=== PATIENT | male | born 1950 | race Caucasian/White ===

== ENCOUNTER 2020-02-08 05:11 | Inpatient (IN) ==
[2020-02-08] MEDS ORDERED: Nitroglycerin 0.4 MG TAB.SUBL SL PRN (05:24)
[2020-02-08] MEDS ORDERED: Aspirin 81 MG TAB.CHEW PO ONE (05:24)
[2020-02-08] MEDS ORDERED: Aspirin 81 MG TAB.CHEW ONE (05:30)
[2020-02-08] MEDS ORDERED: Nitroglycerin 0.4 MG TAB.SUBL SL ONE (05:30)
[2020-02-08 05:49] LABS: Basophils % 0.6 %; Eosinophils # 0.3 K/mcL (0.0-0.6); Eosinophils % 4.2 %; Hematocrit 46.1 % (37.5-50.1); Hemoglobin 15.1 g/dL (12.9-16.9); Immature Granulocytes % 0.3 % (0-4); Lymphocytes # 1.4 K/mcL (0.6-4.6); Mean Corpuscular HGB Conc 32.8 g/dL (31.6-35.5); Mean Corpuscular Hemoglobin 28.3 pg (28.0-33.3); Mean Corpuscular Volume 86.5 fL (83.0-100.0); Mean Platelet Volume 8.8 fL (9.4-12.4); Monocytes # 0.5 K/mcL (0.0-1.3); Monocytes % 6.6 %; Platelet Count 173 K/mcL (140-400); Red Blood Count 5.33 M/mcL (4.19-5.50); Red Cell Distribution Width 15.2 % (11.5-14.5); Segmented Neutrophils % 69.3 %; White Blood Count 7.2 K/mcL (4.3-11.1)
[2020-02-08] MEDS ORDERED: *HR* Ticagrelor 90 MG TABLET PO ONE (05:49)
[2020-02-08 05:50] LABS: INR 1.1; Prothrombin Time 12.2 Seconds (9.4-12.1)
[2020-02-08] MEDS ORDERED: *HR* Heparin 5,000 UNIT/ML VIAL IVP ONE (05:50)
[2020-02-08 05:53] LABS: Activated Partial Thrombo Time 27.4 Seconds (26.0-36.0)
[2020-02-08] MEDS ORDERED: 0.9 % Sodium Chloride 1,000 ML IVC SCH ×4 (06:00→13:36)
[2020-02-08 06:03] LABS: BUN/Creatinine Ratio 18 (6-26); Blood Urea Nitrogen 18 mg/dL (8-23); Calcium 9.1 mg/dL (8.6-10.3); Carbon Dioxide 25 mEq/L (23-29); Chloride 108 mEq/L (98-107); Glucose 143 mg/dL (70-105); Osmolality,Calculated 296 (280-300); Potassium 3.6 mEq/L (3.5-5.1); Sodium 141 mEq/L (136-145); Troponin I < 0.03 ng/mL (< 0.04); eGFR For African Americans > 60 (> 60); eGFR For Non-African Americans > 60 (> 60)
[2020-02-08] MEDS ORDERED: *HR* FentaNYL (PF) 100 MCG/2 ML VIAL ONE (06:21)
[2020-02-08] MEDS ORDERED: Heparin 1,000 UNITS/500 mL 500 ML ONE (06:21)
[2020-02-08] MEDS ORDERED: *HR* Heparin 10,000 UNIT/10 ML VIAL ONE (06:21)
[2020-02-08] MEDS ORDERED: 0.9 % Sodium Chloride 1,000 ML ONE (06:21)
[2020-02-08] MEDS ORDERED: *HR* Midazolam HCl 2 MG/2 ML VIAL ONE (06:21)
[2020-02-08] MEDS ORDERED: ISOVUE-370 200 ML INFUS..BTL ONE (06:21)
[2020-02-08] MEDS ORDERED: Nitroglycerin 1,000 MCG/10 ML VIAL IV ONE (06:21)
[2020-02-08] MEDS ORDERED: Perflutren Lipid Microsphere 1.3 ML in 0.9 % Sodium Chloride 8.7 ML IVP PRN (07:20)
[2020-02-08] MEDS ORDERED: lisinopriL 5 MG TABLET PO SCH (11:45)
[2020-02-08] MEDS ORDERED: Metoprolol XL (24 HR) Succ 50 MG TAB.ER.24H PO SCH (11:45)
[2020-02-08] MEDS: *HR* Heparin 5,000 UNIT/ML VIAL SQ SCH (16:40)
[2020-02-08] MEDS ORDERED: Methyl Salicylate/Menthol 57 APPL/57 GM TUBE TP PRN (16:54)
[2020-02-08] MEDS: Acetaminophen 325 MG TABLET PO PRN (17:34)
[2020-02-08] MEDS: Ketotifen Fumarate [Zaditor] 1 DROP OP SCH (20:30)
[2020-02-08] MEDS: calcium polycarbophiL 625 MG TABLET PO SCH (21:07)
[2020-02-09] MEDS: *HR* Heparin 5,000 UNIT/ML VIAL SQ SCH ×2 (06:32→17:00)
[2020-02-09] MEDS: calcium polycarbophiL 625 MG TABLET PO SCH ×2 (08:11→20:33)
[2020-02-09] MEDS: Cholecalciferol (D-3) 1,000 UNIT (25MCG) TABLET PO SCH (08:12)
[2020-02-09] MEDS: lisinopriL 5 MG TABLET PO SCH (08:12)
[2020-02-09] MEDS: Ketotifen Fumarate [Zaditor] 1 DROP OP SCH ×2 (08:12→20:33)
[2020-02-09] MEDS: polyethylene glycoL 3350 17 GM POWD.PACK PO SCH (08:13)
[2020-02-09 08:48] LABS: Basophils % 0.5 %; Eosinophils # 0.3 K/mcL (0.0-0.6); Eosinophils % 3.6 %; Hematocrit 47.6 % (37.5-50.1); Hemoglobin 15.1 g/dL (12.9-16.9); Immature Granulocytes % 0.3 % (0-4); Lymphocytes # 1.8 K/mcL (0.6-4.6); Lymphocytes % 20.2 %; Mean Corpuscular HGB Conc 31.7 g/dL (31.6-35.5); Mean Platelet Volume 8.5 fL (9.4-12.4); Monocytes # 0.5 K/mcL (0.0-1.3); Monocytes % 6.1 %; Neutrophils # 6.2 K/mcL (1.6-8.9); Platelet Count 196 K/mcL (140-400); Red Cell Distribution Width 15.1 % (11.5-14.5); Segmented Neutrophils % 69.3 %; White Blood Count 8.9 K/mcL (4.3-11.1)
[2020-02-09] MEDS ORDERED: Metoprolol XL (24 HR) Succ 50 MG TAB.ER.24H PO SCH (09:00)
[2020-02-09 09:06] LABS: BUN/Creatinine Ratio 22 (6-26); Blood Urea Nitrogen 19 mg/dL (8-23); Calcium 9.2 mg/dL (8.6-10.3); Carbon Dioxide 22 mEq/L (23-29); Chloride 110 mEq/L (98-107); Glucose 162 mg/dL (70-105); Osmolality,Calculated 292 (280-300); Potassium 3.6 mEq/L (3.5-5.1); Sodium 138 mEq/L (136-145); eGFR For African Americans > 60 (> 60); eGFR For Non-African Americans > 60 (> 60)
[2020-02-09 09:48] LABS: Thyroid Stimulating Hormone 4.646 mcIU/mL (0.340-5.600)
[2020-02-09] MEDS ORDERED: Amiodarone Premix 150 MG/100 ML BAG IVPB ONE (10:15)
[2020-02-09] MEDS ORDERED: Amiodarone Premix 360 MG/200 ML BAG IVC ONE (10:15)
[2020-02-09] MEDS ORDERED: Benzonatate 100 MG CAPSULE PO PRN (10:31)
[2020-02-09 11:13] LABS: Troponin I < 0.03 ng/mL (< 0.04)
[2020-02-09] MEDS ORDERED: Metoprolol XL (24 HR) Succ 50 MG TAB.ER.24H PO ONE (12:53)
[2020-02-09] MEDS: Aspirin Enteric Coated 81 MG Tablet PO SCH (12:54)
[2020-02-09] MEDS: Acetaminophen 325 MG TABLET PO PRN (13:09)
[2020-02-09] MEDS ORDERED: Amiodarone Premix 360 MG/200 ML BAG IVC SCH (16:00)
[2020-02-10] MEDS: *HR* Heparin 5,000 UNIT/ML VIAL SQ SCH ×2 (05:32→16:37)
[2020-02-10] MEDS: Acetaminophen 325 MG TABLET PO PRN ×2 (08:43→20:57)
[2020-02-10] MEDS: Aspirin Enteric Coated 81 MG Tablet PO SCH (08:43)
[2020-02-10] MEDS: Cholecalciferol (D-3) 1,000 UNIT (25MCG) TABLET PO SCH (08:44)
[2020-02-10] MEDS: lisinopriL 5 MG TABLET PO SCH (08:44)
[2020-02-10] MEDS: polyethylene glycoL 3350 17 GM POWD.PACK PO SCH (08:45)
[2020-02-10] MEDS: calcium polycarbophiL 625 MG TABLET PO SCH ×2 (08:45→21:03)
[2020-02-10] MEDS: Ketotifen Fumarate [Zaditor] 1 DROP OP SCH ×2 (08:49→20:48)
[2020-02-10] MEDS ORDERED: Metoprolol 100 MG TABLET PO SCH (09:00)
[2020-02-10] MEDS ORDERED: Metoprolol XL (24 HR) Succ 50 MG TAB.ER.24H PO SCH (09:00)
[2020-02-10 11:41] LABS: BUN/Creatinine Ratio 22 (6-26); Blood Urea Nitrogen 21 mg/dL (8-23); Calcium 8.8 mg/dL (8.6-10.3); Carbon Dioxide 23 mEq/L (23-29); Chloride 108 mEq/L (98-107); Glucose 106 mg/dL (70-105); Magnesium 1.9 mg/dL (1.6-2.6); Osmolality,Calculated 291 (280-300); Sodium 139 mEq/L (136-145); eGFR For African Americans > 60 (> 60); eGFR For Non-African Americans > 60 (> 60)
[2020-02-10] MEDS: Magnesium Oxide 400 MG TABLET PO SCH (16:28)
[2020-02-10] MEDS: Metoprolol XL (24 HR) Succ 50 MG TAB.ER.24H PO SCH (20:54)
[2020-02-11] MEDS: *HR* Heparin 5,000 UNIT/ML VIAL SQ SCH ×2 (05:57→17:10)
[2020-02-11] MEDS: Metoprolol XL (24 HR) Succ 50 MG TAB.ER.24H PO SCH ×2 (07:45→20:47)
[2020-02-11] MEDS: lisinopriL 5 MG TABLET PO SCH (07:46)
[2020-02-11] MEDS: polyethylene glycoL 3350 17 GM POWD.PACK PO SCH (07:46)
[2020-02-11] MEDS: Ketotifen Fumarate [Zaditor] 1 DROP OP SCH (07:46)
[2020-02-11] MEDS: Cholecalciferol (D-3) 1,000 UNIT (25MCG) TABLET PO SCH (07:46)
[2020-02-11] MEDS: calcium polycarbophiL 625 MG TABLET PO SCH ×2 (07:46→20:44)
[2020-02-11] MEDS: Aspirin Enteric Coated 81 MG Tablet PO SCH (07:46)
[2020-02-11] MEDS: Magnesium Oxide 400 MG TABLET PO SCH (07:46)
[2020-02-11] MEDS ORDERED: 0.9 % Sodium Chloride 500 ML ONE (13:30)
[2020-02-11] MEDS ORDERED: *HR* FentaNYL (PF) 100 MCG/2 ML VIAL ONE (13:31)
[2020-02-11] MEDS ORDERED: *HR* Midazolam HCl 2 MG/2 ML VIAL ONE ×2 (13:31→13:58)
[2020-02-11] MEDS ORDERED: 0.9 % Sodium Chloride 1,000 ML ONE (13:45)
[2020-02-11] MEDS: Acetaminophen 325 MG TABLET PO PRN (17:11)
[2020-02-12] MEDS: Acetaminophen 325 MG TABLET PO PRN ×2 (01:13→10:57)
[2020-02-12] MEDS: Ibuprofen 400 MG TABLET PO PRN ×2 (01:13→10:57)
[2020-02-12 01:58] LABS: Basophils % 0.5 %; Eosinophils # 0.3 K/mcL (0.0-0.6); Eosinophils % 3.8 %; Hematocrit 43.5 % (37.5-50.1); Hemoglobin 14.3 g/dL (12.9-16.9); Immature Granulocytes % 0.4 % (0-4); Lymphocytes # 1.6 K/mcL (0.6-4.6); Mean Corpuscular HGB Conc 32.9 g/dL (31.6-35.5); Mean Corpuscular Hemoglobin 28.4 pg (28.0-33.3); Mean Corpuscular Volume 86.5 fL (83.0-100.0); Monocytes # 0.9 K/mcL (0.0-1.3); Monocytes % 10.4 %; Neutrophils # 5.6 K/mcL (1.6-8.9); Platelet Count 172 K/mcL (140-400); Red Blood Count 5.03 M/mcL (4.19-5.50); Red Cell Distribution Width 15.2 % (11.5-14.5); Segmented Neutrophils % 65.9 %; White Blood Count 8.4 K/mcL (4.3-11.1)
[2020-02-12 02:11] LABS: BUN/Creatinine Ratio 22 (6-26); Blood Urea Nitrogen 21 mg/dL (8-23); Calcium 9.1 mg/dL (8.6-10.3); Carbon Dioxide 24 mEq/L (23-29); Chloride 105 mEq/L (98-107); Glucose 132 mg/dL (70-105); Osmolality,Calculated 291 (280-300); Sodium 138 mEq/L (136-145); eGFR For African Americans > 60 (> 60); eGFR For Non-African Americans > 60 (> 60)
[2020-02-12] MEDS: *HR* Heparin 5,000 UNIT/ML VIAL SQ SCH (05:48)
[2020-02-12] MEDS: Magnesium Oxide 400 MG TABLET PO SCH (07:25)
[2020-02-12] MEDS: lisinopriL 5 MG TABLET PO SCH (07:25)
[2020-02-12] MEDS: Metoprolol XL (24 HR) Succ 50 MG TAB.ER.24H PO SCH (07:25)
[2020-02-12] MEDS: Cholecalciferol (D-3) 1,000 UNIT (25MCG) TABLET PO SCH (07:25)
[2020-02-12] MEDS: Aspirin Enteric Coated 81 MG Tablet PO SCH (07:26)
[2020-02-12] MEDS: polyethylene glycoL 3350 17 GM POWD.PACK PO SCH (07:26)
[2020-02-12] MEDS: calcium polycarbophiL 625 MG TABLET PO SCH ×2 (07:26→11:00)
[2020-02-12 11:04] VITALS: BP 127/82
== END 2020-02-12 13:07 | disposition home or self-care (01) | DRG 224 ==
LOC: EMEROOARM 05:11 → INTOOBSV 06:05 → ICNU 06:05 → 2NNU 17:21
PROVIDERS: ADMIT Internal Medicine Cardiovascular Disease; ATTEND Internal Medicine Cardiovascular Disease

== ENCOUNTER 2020-03-26 16:19 | Inpatient (IN) ==
[2020-03-26] MEDS ORDERED: Aspirin 81 MG TAB.CHEW PO ONE (16:37)
[2020-03-26] MEDS ORDERED: Amiodarone Premix 150 MG/100 ML BAG IVPB ONE ×2 (16:48→16:51)
[2020-03-26] MEDS ORDERED: *HR* HYDROmorphone (PF) 1 MG/ML SYRINGE IVP STA (16:49)
[2020-03-26 16:55] LABS: Basophils % 0.3 %; Eosinophils # 0.4 K/mcL (0.0-0.6); Eosinophils % 3.7 %; Hematocrit 43.1 % (37.5-50.1); Hemoglobin 13.8 g/dL (12.9-16.9); Immature Granulocytes % 0.4 % (0-4); Lymphocytes # 1.7 K/mcL (0.6-4.6); Lymphocytes % 18.1 %; Mean Corpuscular Hemoglobin 27.7 pg (28.0-33.3); Mean Corpuscular Volume 86.5 fL (83.0-100.0); Mean Platelet Volume 8.6 fL (9.4-12.4); Monocytes # 0.9 K/mcL (0.0-1.3); Monocytes % 9.9 %; Neutrophils # 6.3 K/mcL (1.6-8.9); Platelet Count 163 K/mcL (140-400); Red Blood Count 4.98 M/mcL (4.19-5.50); Red Cell Distribution Width 15.2 % (11.5-14.5); Segmented Neutrophils % 67.6 %; White Blood Count 9.3 K/mcL (4.3-11.1)
[2020-03-26] MEDS ORDERED: Amiodarone Premix 360 MG/200 ML BAG IVC ONE (16:55)
[2020-03-26 17:03] LABS: Activated Partial Thrombo Time 25.9 Seconds (26.0-36.0)
[2020-03-26 17:13] LABS: Alanine Aminotransferase 25 Units/L (7-52); Albumin 4.2 g/dL (3.5-5.7); Albumin/Globulin Ratio 1.2 (1.1-2.2); Alkaline Phosphatase 86 Units/L (34-104); Aspartate Amino Transferase 18 Units/L (13-39); BUN/Creatinine Ratio 27 (6-26); Bilirubin,Indirect 0.3 mg/dL (0.0-1.0); Bilirubin,Total 0.3 mg/dL (0.3-1.0); Blood Urea Nitrogen 24 mg/dL (8-23); Calcium 9.1 mg/dL (8.6-10.3); Carbon Dioxide 24 mEq/L (23-29); Chloride 107 mEq/L (98-107); Globulin 3.4 g/dL (2.4-3.5); Glucose 170 mg/dL (70-105); Lipase 28 Units/L (11-82); Osmolality,Calculated 294 (280-300); Potassium 3.8 mEq/L (3.5-5.1); Sodium 138 mEq/L (136-145); Total Protein 7.6 g/dL (6.4-8.9); Troponin I < 0.03 ng/mL (< 0.04); eGFR For African Americans > 60 (> 60); eGFR For Non-African Americans > 60 (> 60)
[2020-03-26 17:46] LABS: Prothrombin Time 12.3 Seconds (9.4-12.1)
[2020-03-26 17:47] LABS: INR 1.1
[2020-03-26] MEDS ORDERED: *HR* Heparin 5,000 UNIT/ML VIAL IVP PRN ×2 (18:43)
[2020-03-26] MEDS ORDERED: *HR* Heparin 5,000 UNIT/ML VIAL IVP ONE (18:43)
[2020-03-26 18:48] LABS: Bilirubin,Urine Negative (Negative); Blood,Urine Negative (Negative); Clarity,Urine Clear (Clear); Color,Urine Light-Yellow (Yellow); Glucose,Urine (UA) Normal (Normal); Ketones,Urine Negative (Negative); Leukocyte Esterase,Urine Negative (Negative); Nitrite,Urine Negative (Negative); Protein,Urine Trace mg/dL (Neg-Trace); Specific Gravity,Urine > 1.030 (1.010-1.025); Urobilinogen,Urine Normal (Normal)
[2020-03-26] MEDS ORDERED: Heparin 25,000UNIT/250ML 1/2NS 25,000 UNIT/250 ML IV.SOLN ONE (18:51)
[2020-03-26] MEDS: Heparin 25,000UNIT/250ML 1/2NS 25,000 UNIT/250 ML IV.SOLN IVC SCH (18:58)
[2020-03-26 19:18] LABS: Hematocrit 40.8 % (37.5-50.1); Hemoglobin 13.1 g/dL (12.9-16.9); Mean Corpuscular HGB Conc 32.1 g/dL (31.6-35.5); Mean Corpuscular Hemoglobin 27.8 pg (28.0-33.3); Mean Corpuscular Volume 86.6 fL (83.0-100.0); Mean Platelet Volume 8.7 fL (9.4-12.4); Platelet Count 154 K/mcL (140-400); Red Blood Count 4.71 M/mcL (4.19-5.50); Red Cell Distribution Width 15.3 % (11.5-14.5); White Blood Count 9.1 K/mcL (4.3-11.1)
[2020-03-26 19:25] LABS: Heparin anti-factor XA UFH < 0.04 IU/mL (0.30-0.70); INR 1.1; Prothrombin Time 12.2 Seconds (9.4-12.1)
[2020-03-26] MEDS ORDERED: Ondansetron ODT 4 MG TAB.RAPDIS SL PRN (19:37)
[2020-03-26] MEDS ORDERED: Naloxone 0.4 MG/ML INJ IVP PRN (19:37)
[2020-03-26] MEDS ORDERED: Benzonatate 100 MG CAPSULE PO PRN (21:07)
[2020-03-26] MEDS ORDERED: Amiodarone Premix 360 MG/200 ML BAG IVC SCH (22:55)
[2020-03-27 02:43] LABS: Basophils % 0.4 %; Eosinophils # 0.3 K/mcL (0.0-0.6); Eosinophils % 3.1 %; Hematocrit 43.4 % (37.5-50.1); Immature Granulocytes % 0.5 % (0-4); Lymphocytes # 1.7 K/mcL (0.6-4.6); Lymphocytes % 18.9 %; Mean Corpuscular HGB Conc 32.3 g/dL (31.6-35.5); Mean Corpuscular Hemoglobin 28.3 pg (28.0-33.3); Mean Corpuscular Volume 87.7 fL (83.0-100.0); Mean Platelet Volume 8.7 fL (9.4-12.4); Monocytes # 0.8 K/mcL (0.0-1.3); Monocytes % 8.3 %; Neutrophils # 6.3 K/mcL (1.6-8.9); Platelet Count 162 K/mcL (140-400); Red Blood Count 4.95 M/mcL (4.19-5.50); Red Cell Distribution Width 15.5 % (11.5-14.5); Segmented Neutrophils % 68.8 %; White Blood Count 9.2 K/mcL (4.3-11.1)
[2020-03-27 03:01] LABS: BUN/Creatinine Ratio 23 (6-26); Blood Urea Nitrogen 18 mg/dL (8-23); Calcium 9.4 mg/dL (8.6-10.3); Carbon Dioxide 21 mEq/L (23-29); Chloride 107 mEq/L (98-107); Glucose 116 mg/dL (70-105); Osmolality,Calculated 285 (280-300); Potassium 4.4 mEq/L (3.5-5.1); Sodium 136 mEq/L (136-145); eGFR For African Americans > 60 (> 60); eGFR For Non-African Americans > 60 (> 60)
[2020-03-27] MEDS ORDERED: [UNRECOGNIZED DRUG - OTHER] NS SCH (09:00)
[2020-03-27] MEDS: Metoprolol XL (24 HR) Succ 50 MG TAB.ER.24H PO SCH ×2 (09:27→20:21)
[2020-03-27] MEDS: Aspirin Enteric Coated 81 MG Tablet PO SCH (09:27)
[2020-03-27] MEDS ORDERED: Furosemide 20 MG/2 ML VIAL IVP ONE (11:40)
[2020-03-27] MEDS: *HR* Amiodarone 200 MG TABLET PO SCH (11:59)
[2020-03-27] MEDS: Heparin 25,000UNIT/250ML 1/2NS 25,000 UNIT/250 ML IV.SOLN IVC SCH (14:58)
[2020-03-27] MEDS: Acetaminophen 325 MG TABLET PO PRN (20:21)
[2020-03-27] MEDS ORDERED: Sennosides/Docusate Sodium TABLET PO SCH (21:00)
[2020-03-28 04:54] LABS: BUN/Creatinine Ratio 24 (6-26); Blood Urea Nitrogen 25 mg/dL (8-23); Calcium 9.1 mg/dL (8.6-10.3); Carbon Dioxide 23 mEq/L (23-29); Chloride 106 mEq/L (98-107); Glucose 119 mg/dL (70-105); Magnesium 2.1 mg/dL (1.6-2.6); Osmolality,Calculated 292 (280-300); Potassium 4.1 mEq/L (3.5-5.1); Sodium 138 mEq/L (136-145); eGFR For African Americans > 60 (> 60); eGFR For Non-African Americans > 60 (> 60)
[2020-03-28] MEDS: Aspirin Enteric Coated 81 MG Tablet PO SCH (08:06)
[2020-03-28] MEDS: Metoprolol XL (24 HR) Succ 50 MG TAB.ER.24H PO SCH ×2 (08:48→19:41)
[2020-03-28] MEDS: *HR* Amiodarone 200 MG TABLET PO SCH (08:49)
[2020-03-28] MEDS ORDERED: Fluticasone Propionate Nasal 50 MCG/SPRAY BOTTLE NS PRN (09:33)
[2020-03-28] MEDS: Heparin 25,000UNIT/250ML 1/2NS 25,000 UNIT/250 ML IV.SOLN IVC SCH (10:34)
[2020-03-28] MEDS: Furosemide 20 MG TABLET PO SCH (18:00)
[2020-03-28] MEDS: Acetaminophen 325 MG TABLET PO PRN (23:20)
[2020-03-29 05:02] LABS: BUN/Creatinine Ratio 22 (6-26); Blood Urea Nitrogen 22 mg/dL (8-23); Calcium 9.6 mg/dL (8.6-10.3); Carbon Dioxide 23 mEq/L (23-29); Chloride 104 mEq/L (98-107); Glucose 114 mg/dL (70-105); Magnesium 2.1 mg/dL (1.6-2.6); Osmolality,Calculated 286 (280-300); Potassium 3.9 mEq/L (3.5-5.1); Sodium 136 mEq/L (136-145); eGFR For African Americans > 60 (> 60); eGFR For Non-African Americans > 60 (> 60)
[2020-03-29] MEDS: Heparin 25,000UNIT/250ML 1/2NS 25,000 UNIT/250 ML IV.SOLN IVC SCH (05:58)
[2020-03-29] MEDS: Aspirin Enteric Coated 81 MG Tablet PO SCH (08:12)
[2020-03-29] MEDS: Metoprolol XL (24 HR) Succ 50 MG TAB.ER.24H PO SCH (08:12)
[2020-03-29] MEDS: Furosemide 20 MG TABLET PO SCH (08:12)
[2020-03-29] MEDS ORDERED: *HR* Amiodarone 200 MG TABLET PO SCH (09:00)
[2020-03-29 11:08] VITALS: BP 135/74
== END 2020-03-29 12:19 | disposition home or self-care (01) ==
LOC: 2NNU 16:19 → EMEROOARM 16:19 → 2NNU 20:17 → SUATTDRO 03-27 13:28
PROVIDERS: ADMIT Internal Medicine; ATTEND General Practice

== ENCOUNTER 2020-04-02 12:05 | Inpatient (IN) ==
[2020-04-02 12:49] LABS: Basophils % 0.3 %; Eosinophils # 0.3 K/mcL (0.0-0.6); Eosinophils % 2.5 %; Hematocrit 44.9 % (37.5-50.1); Hemoglobin 14.2 g/dL (12.9-16.9); Immature Granulocytes % 0.7 % (0-4); Lymphocytes # 1.5 K/mcL (0.6-4.6); Lymphocytes % 14.9 %; Mean Corpuscular HGB Conc 31.6 g/dL (31.6-35.5); Mean Corpuscular Hemoglobin 27.6 pg (28.0-33.3); Mean Corpuscular Volume 87.4 fL (83.0-100.0); Mean Platelet Volume 8.9 fL (9.4-12.4); Monocytes # 0.7 K/mcL (0.0-1.3); Monocytes % 6.8 %; Neutrophils # 7.7 K/mcL (1.6-8.9); Platelet Count 172 K/mcL (140-400); Red Blood Count 5.14 M/mcL (4.19-5.50); Red Cell Distribution Width 15.4 % (11.5-14.5); Segmented Neutrophils % 74.8 %; White Blood Count 10.3 K/mcL (4.3-11.1)
[2020-04-02 12:56] LABS: INR 1.1; Prothrombin Time 12.5 Seconds (9.4-12.1)
[2020-04-02 12:59] LABS: Activated Partial Thrombo Time 25.6 Seconds (26.0-36.0)
[2020-04-02 13:09] LABS: BUN/Creatinine Ratio 24 (6-26); Blood Urea Nitrogen 27 mg/dL (8-23); Calcium 8.8 mg/dL (8.6-10.3); Carbon Dioxide 22 mEq/L (23-29); Chloride 106 mEq/L (98-107); Glucose 173 mg/dL (70-105); Osmolality,Calculated 295 (280-300); Potassium 3.7 mEq/L (3.5-5.1); Sodium 138 mEq/L (136-145); eGFR For African Americans > 60 (> 60); eGFR For Non-African Americans > 60 (> 60)
[2020-04-02 13:10] LABS: Troponin I < 0.03 ng/mL (< 0.04)
[2020-04-02] MEDS ORDERED: Amiodarone Premix 150 MG/100 ML BAG IVPB ONE (13:22)
[2020-04-02] MEDS ORDERED: Amiodarone Premix 360 MG/200 ML BAG IVC ONE (13:25)
[2020-04-02] MEDS ORDERED: Naloxone 0.4 MG/ML INJ IVP PRN (13:55)
[2020-04-02] MEDS ORDERED: Ondansetron 4 MG/2 ML VIAL IVP PRN (13:55)
[2020-04-02] MEDS ORDERED: *HR* HYDROcodone/Acet 5/325 mg TABLET PO PRN (13:55)
[2020-04-02 14:53] LABS: Adenovirus Not Detected (Not Detect); Bordetella Pertussis Not Detected (Not Detect); Chlamydophila pneumoniae Not Detected (Not Detect); Coronavirus 229E Not Detected (Not Detect); Coronavirus HKU1 Not Detected (Not Detect); Coronavirus NL63 Not Detected (Not Detect); Coronavirus OC43 Not Detected (Not Detect); Human Metapneumovirus Not Detected (Not Detect); Human Rhinovirus/Enterovirus Not Detected (Not Detect); Influenza A Subtype 2009 H1 Not Detected (Not Detect); Influenza B Not Detected (Not Detect); Mycoplasma pneumoniae Not Detected (Not Detect); Parainfluenza Virus 1 Not Detected (Not Detect); Parainfluenza Virus 2 Not Detected (Not Detect); Parainfluenza Virus 3 Not Detected (Not Detect); Parainfluenza Virus 4 Not Detected (Not Detect); Respiratory Syncytial Virus Not Detected (Not Detect); SARS-CoV-2 Not Detected (Not Detect)
[2020-04-02] MEDS ORDERED: Amiodarone Premix 360 MG/200 ML BAG IVC SCH (19:25)
[2020-04-02] MEDS: *HR* Amiodarone 200 MG TABLET PO SCH (20:16)
[2020-04-02] MEDS: Metoprolol XL (24 HR) Succ 50 MG TAB.ER.24H PO SCH (20:16)
[2020-04-02] MEDS: Acetaminophen 325 MG TABLET PO PRN (21:10)
[2020-04-02] MEDS: *HR* Heparin 5,000 UNIT/ML VIAL SQ SCH (21:10)
[2020-04-03 00:59] LABS: Basophils % 0.4 %; Eosinophils # 0.2 K/mcL (0.0-0.6); Hematocrit 41.3 % (37.5-50.1); Hemoglobin 13.6 g/dL (12.9-16.9); Immature Granulocytes % 0.4 % (0-4); Lymphocytes # 1.9 K/mcL (0.6-4.6); Lymphocytes % 17.9 %; Mean Corpuscular HGB Conc 32.9 g/dL (31.6-35.5); Mean Corpuscular Hemoglobin 28.5 pg (28.0-33.3); Mean Corpuscular Volume 86.6 fL (83.0-100.0); Mean Platelet Volume 8.8 fL (9.4-12.4); Monocytes # 0.7 K/mcL (0.0-1.3); Monocytes % 6.6 %; Neutrophils # 7.5 K/mcL (1.6-8.9); Platelet Count 162 K/mcL (140-400); Red Blood Count 4.77 M/mcL (4.19-5.50); Red Cell Distribution Width 15.4 % (11.5-14.5); Segmented Neutrophils % 72.7 %; White Blood Count 10.4 K/mcL (4.3-11.1)
[2020-04-03 01:18] LABS: BUN/Creatinine Ratio 25 (6-26); Blood Urea Nitrogen 23 mg/dL (8-23); Calcium 8.6 mg/dL (8.6-10.3); Carbon Dioxide 24 mEq/L (23-29); Chloride 107 mEq/L (98-107); Glucose 109 mg/dL (70-105); Osmolality,Calculated 290 (280-300); Phosphorous 3.6 mg/dL (2.7-4.5); Sodium 138 mEq/L (136-145); eGFR For African Americans > 60 (> 60); eGFR For Non-African Americans > 60 (> 60)
[2020-04-03] MEDS: *HR* Heparin 5,000 UNIT/ML VIAL SQ SCH ×3 (05:06→20:47)
[2020-04-03] MEDS: Acetaminophen 325 MG TABLET PO PRN ×2 (05:06→13:24)
[2020-04-03] MEDS ORDERED: lisinopriL 5 MG TABLET PO SCH (09:00)
[2020-04-03] MEDS ORDERED: Perflutren Lipid Microsphere 1.3 ML in 0.9 % Sodium Chloride 8.7 ML IVP PRN (10:09)
[2020-04-03] MEDS: Tiotropium 10 INH DOSE IH SCH (10:34)
[2020-04-03] MEDS: Furosemide 20 MG TABLET PO SCH (11:25)
[2020-04-03] MEDS: calcium polycarbophiL 625 MG TABLET PO SCH ×2 (11:25→20:49)
[2020-04-03] MEDS: Aspirin Enteric Coated 81 MG Tablet PO SCH (11:25)
[2020-04-03] MEDS: Magnesium Oxide 400 MG TABLET PO SCH (11:26)
[2020-04-03] MEDS: Metoprolol XL (24 HR) Succ 50 MG TAB.ER.24H PO SCH ×2 (11:26→20:53)
[2020-04-03] MEDS: Ketotifen Fumarate [Zaditor] OP SCH ×2 (11:26→20:53)
[2020-04-03] MEDS: *HR* Amiodarone 200 MG TABLET PO SCH ×3 (11:29→20:51)
[2020-04-03] MEDS ORDERED: Mag Hydrox/Al Hydrox/Simeth 30 ML UDC PO PRN (21:06)
[2020-04-04 03:15] LABS: Basophils % 0.4 %; Eosinophils # 0.3 K/mcL (0.0-0.6); Eosinophils % 2.8 %; Hematocrit 42.1 % (37.5-50.1); Hemoglobin 13.3 g/dL (12.9-16.9); Immature Granulocytes % 0.5 % (0-4); Lymphocytes # 1.8 K/mcL (0.6-4.6); Lymphocytes % 18.5 %; Mean Corpuscular HGB Conc 31.6 g/dL (31.6-35.5); Mean Corpuscular Hemoglobin 27.5 pg (28.0-33.3); Mean Platelet Volume 8.5 fL (9.4-12.4); Monocytes # 0.7 K/mcL (0.0-1.3); Monocytes % 7.2 %; Neutrophils # 6.8 K/mcL (1.6-8.9); Platelet Count 163 K/mcL (140-400); Red Blood Count 4.84 M/mcL (4.19-5.50); Red Cell Distribution Width 15.4 % (11.5-14.5); Segmented Neutrophils % 70.6 %; White Blood Count 9.6 K/mcL (4.3-11.1)
[2020-04-04 03:37] LABS: BUN/Creatinine Ratio 20 (6-26); Blood Urea Nitrogen 19 mg/dL (8-23); Calcium 8.9 mg/dL (8.6-10.3); Carbon Dioxide 22 mEq/L (23-29); Chloride 106 mEq/L (98-107); Glucose 104 mg/dL (70-105); Magnesium 2.1 mg/dL (1.6-2.6); Osmolality,Calculated 283 (280-300); Potassium 4.2 mEq/L (3.5-5.1); Sodium 135 mEq/L (136-145); eGFR For African Americans > 60 (> 60); eGFR For Non-African Americans > 60 (> 60)
[2020-04-04] MEDS: *HR* Heparin 5,000 UNIT/ML VIAL SQ SCH ×3 (05:44→20:16)
[2020-04-04] MEDS: Tiotropium 10 INH DOSE IH SCH (07:40)
[2020-04-04] MEDS: Furosemide 20 MG TABLET PO SCH (08:07)
[2020-04-04] MEDS: Magnesium Oxide 400 MG TABLET PO SCH (08:07)
[2020-04-04] MEDS: *HR* Amiodarone 200 MG TABLET PO SCH ×4 (08:08→20:16)
[2020-04-04] MEDS: lisinopriL 10 MG TABLET PO SCH (08:08)
[2020-04-04] MEDS: Aspirin Enteric Coated 81 MG Tablet PO SCH (08:08)
[2020-04-04] MEDS: Acetaminophen 325 MG TABLET PO PRN ×2 (08:08→18:12)
[2020-04-04] MEDS: Metoprolol XL (24 HR) Succ 50 MG TAB.ER.24H PO SCH ×2 (08:08→20:16)
[2020-04-04] MEDS: calcium polycarbophiL 625 MG TABLET PO SCH ×2 (08:35→20:15)
[2020-04-04] MEDS: Spironolactone 12.5 MG TABLET PO SCH (11:32)
[2020-04-04] MEDS: Ketotifen Fumarate [Zaditor] OP SCH ×2 (15:46→20:17)
[2020-04-05] MEDS: *HR* Heparin 5,000 UNIT/ML VIAL SQ SCH (05:19)
[2020-04-05 05:24] LABS: BUN/Creatinine Ratio 21 (6-26); Blood Urea Nitrogen 20 mg/dL (8-23); Calcium 8.9 mg/dL (8.6-10.3); Carbon Dioxide 22 mEq/L (23-29); Chloride 105 mEq/L (98-107); Glucose 106 mg/dL (70-105); Magnesium 2.2 mg/dL (1.6-2.6); Osmolality,Calculated 285 (280-300); Phosphorous 3.8 mg/dL (2.7-4.5); Potassium 4.1 mEq/L (3.5-5.1); Sodium 136 mEq/L (136-145); eGFR For African Americans > 60 (> 60); eGFR For Non-African Americans > 60 (> 60)
[2020-04-05] MEDS: Aspirin Enteric Coated 81 MG Tablet PO SCH (07:23)
[2020-04-05] MEDS: Spironolactone 12.5 MG TABLET PO SCH (07:23)
[2020-04-05] MEDS: *HR* Amiodarone 200 MG TABLET PO SCH (07:23)
[2020-04-05] MEDS: calcium polycarbophiL 625 MG TABLET PO SCH (07:23)
[2020-04-05] MEDS: Magnesium Oxide 400 MG TABLET PO SCH (07:23)
[2020-04-05] MEDS: Furosemide 20 MG TABLET PO SCH (07:24)
[2020-04-05] MEDS: Metoprolol XL (24 HR) Succ 50 MG TAB.ER.24H PO SCH (07:24)
[2020-04-05] MEDS: lisinopriL 10 MG TABLET PO SCH (07:24)
[2020-04-05] MEDS: Ketotifen Fumarate [Zaditor] OP SCH (07:41)
[2020-04-05] MEDS: Tiotropium 10 INH DOSE IH SCH (07:59)
[2020-04-05 10:43] VITALS: BP 112/69
[2020-04-06] MEDS ORDERED: *HR* Amiodarone 200 MG TABLET PO SCH (09:00)
== END 2020-04-05 12:32 | disposition home or self-care (01) | DRG 281 ==
LOC: EMEROOARM 12:05 → 2NNU 15:15 → INTOOBSV 15:15 → SUATTDRO 15:15 → 2NNU 15:30 → 2ANU 04-04 17:58
PROVIDERS: ADMIT General Practice; ATTEND Internal Medicine

== ENCOUNTER 2021-04-03 21:29 | Observation (INO) ==
[2021-04-03] MEDS ORDERED: Aspirin 325 MG TABLET PO ONE (21:47)
[2021-04-03] MEDS: Amiodarone Premix 150 MG/100 ML BAG IVPB ONE (22:45)
[2021-04-03] MEDS ORDERED: Amiodarone Premix 150 MG/100 ML BAG IVPB ONE (23:00)
[2021-04-03 23:07] LABS: Basophils % 0.3 %; Eosinophils # 0.4 K/mcL (0.0-0.6); Eosinophils % 2.9 %; Hematocrit 46.6 % (37.5-50.1); Immature Granulocytes % 0.6 % (0-4); Lymphocytes # 2.2 K/mcL (0.6-4.6); Lymphocytes % 17.5 %; Mean Corpuscular HGB Conc 32.2 g/dL (31.6-35.5); Mean Corpuscular Hemoglobin 28.1 pg (28.0-33.3); Mean Corpuscular Volume 87.3 fL (83.0-100.0); Mean Platelet Volume 8.1 fL (9.4-12.4); Monocytes % 8.2 %; Neutrophils # 8.9 K/mcL (1.6-8.9); Platelet Count 158 K/mcL (140-400); Red Blood Count 5.34 M/mcL (4.19-5.50); Segmented Neutrophils % 70.5 %; White Blood Count 12.7 K/mcL (4.3-11.1)
[2021-04-03 23:17] LABS: INR 1.1; Prothrombin Time 12.1 Seconds (9.4-12.1)
[2021-04-03 23:20] LABS: Activated Partial Thrombo Time 29.4 Seconds (26.0-36.0)
[2021-04-03 23:29] LABS: BUN/Creatinine Ratio 24 (6-26); Blood Urea Nitrogen 24 mg/dL (8-23); Calcium 9.1 mg/dL (8.6-10.3); Carbon Dioxide 24 mEq/L (23-29); Chloride 105 mEq/L (98-107); Glucose 110 mg/dL (70-105); Magnesium 2.1 mg/dL (1.6-2.6); Osmolality,Calculated 291 (280-300); Potassium 4.2 mEq/L (3.5-5.1); Sodium 138 mEq/L (136-145); eGFR For African Americans > 60 (> 60); eGFR For Non-African Americans > 60 (> 60)
[2021-04-03 23:30] LABS: Troponin I < 0.03 ng/mL (< 0.04)
[2021-04-03] MEDS ORDERED: Amiodarone Premix 360 MG/200 ML BAG IVC ONE ×2 (23:35→23:36)
[2021-04-03 23:43] LABS: Thyroid Stimulating Hormone 4.098 mcIU/mL (0.340-5.600)
[2021-04-04] MEDS: Amiodarone Premix 150 MG/100 ML BAG IVPB ONE (00:53)
[2021-04-04] MEDS ORDERED: Naloxone 0.4 MG/ML INJ IVP PRN (01:30)
[2021-04-04 02:19] LABS: Hematocrit 43.2 % (37.5-50.1); Hemoglobin 14.2 g/dL (12.9-16.9); Mean Corpuscular HGB Conc 32.9 g/dL (31.6-35.5); Mean Corpuscular Hemoglobin 28.5 pg (28.0-33.3); Mean Corpuscular Volume 86.7 fL (83.0-100.0); Mean Platelet Volume 8.2 fL (9.4-12.4); Platelet Count 149 K/mcL (140-400); Red Blood Count 4.98 M/mcL (4.19-5.50); White Blood Count 10.4 K/mcL (4.3-11.1)
[2021-04-04 02:32] LABS: Prothrombin Time 11.5 Seconds (9.4-12.1)
[2021-04-04 02:34] LABS: Activated Partial Thrombo Time 27.4 Seconds (26.0-36.0)
[2021-04-04 02:40] LABS: BUN/Creatinine Ratio 23 (6-26); Blood Urea Nitrogen 22 mg/dL (8-23); Calcium 8.7 mg/dL (8.6-10.3); Carbon Dioxide 23 mEq/L (23-29); Chloride 106 mEq/L (98-107); Glucose 125 mg/dL (70-105); Magnesium 2.1 mg/dL (1.6-2.6); Osmolality,Calculated 289 (280-300); Potassium 3.8 mEq/L (3.5-5.1); Sodium 137 mEq/L (136-145); Troponin I < 0.03 ng/mL (< 0.04); eGFR For African Americans > 60 (> 60); eGFR For Non-African Americans > 60 (> 60)
[2021-04-04] MEDS ORDERED: Perflutren Lipid Microsphere 1.3 ML in 0.9 % Sodium Chloride 8.7 ML IVP PRN (04:29)
[2021-04-04] MEDS: *HR* Heparin 5,000 UNIT/ML VIAL SQ SCH ×3 (05:03→20:30)
[2021-04-04] MEDS: Amiodarone Premix 360 MG/200 ML BAG IVC SCH ×2 (05:53→17:49)
[2021-04-04] MEDS ORDERED: lisinopriL 5 MG TABLET PO SCH ×2 (09:00→16:00)
[2021-04-04] MEDS ORDERED: NON-FORMULARY MEDICATION 1 EACH EACH (Ketotifen Fumarate [Zaditor] 5 ML Drops) BOTH EYES SCH (09:00)
[2021-04-04] MEDS: Aspirin Enteric Coated 81 MG Tablet PO SCH (09:40)
[2021-04-04] MEDS: Furosemide 20 MG TABLET PO SCH (09:41)
[2021-04-04] MEDS: Spironolactone 12.5 MG TABLET PO SCH (09:42)
[2021-04-04] MEDS ORDERED: Tiotropium 10 INH DOSE IH SCH (10:00)
[2021-04-04] MEDS: Fluticasone Propionate Nasal 50 MCG/SPRAY BOTTLE NS SCH (11:44)
[2021-04-04] MEDS: Loratadine 10 MG TABLET PO SCH (11:44)
[2021-04-04] MEDS: *HR* Amiodarone 200 MG TABLET PO SCH ×2 (14:37→20:30)
[2021-04-04] MEDS: Acetaminophen 325 MG TABLET PO PRN ×2 (16:04→22:23)
[2021-04-04] MEDS: Metoprolol XL (24 HR) Succ 50 MG TAB.ER.24H PO SCH (20:30)
[2021-04-04] MEDS ORDERED: Melatonin 3 MG TABLET PO PRN (21:39)
[2021-04-05 03:07] LABS: Hematocrit 44.6 % (37.5-50.1); Hemoglobin 14.4 g/dL (12.9-16.9); Mean Corpuscular HGB Conc 32.3 g/dL (31.6-35.5); Mean Corpuscular Hemoglobin 27.9 pg (28.0-33.3); Mean Corpuscular Volume 86.4 fL (83.0-100.0); Mean Platelet Volume 8.3 fL (9.4-12.4); Platelet Count 141 K/mcL (140-400); Red Blood Count 5.16 M/mcL (4.19-5.50); Red Cell Distribution Width 14.9 % (11.5-14.5); White Blood Count 8.8 K/mcL (4.3-11.1)
[2021-04-05 03:27] LABS: BUN/Creatinine Ratio 23 (6-26); Blood Urea Nitrogen 23 mg/dL (8-23); Calcium 8.9 mg/dL (8.6-10.3); Carbon Dioxide 25 mEq/L (23-29); Chloride 104 mEq/L (98-107); Glucose 118 mg/dL (70-105); Magnesium 2.1 mg/dL (1.6-2.6); Osmolality,Calculated 291 (280-300); Phosphorous 4.2 mg/dL (2.7-4.5); Potassium 3.9 mEq/L (3.5-5.1); Sodium 138 mEq/L (136-145); eGFR For African Americans > 60 (> 60); eGFR For Non-African Americans > 60 (> 60)
[2021-04-05] MEDS: *HR* Heparin 5,000 UNIT/ML VIAL SQ SCH (04:35)
[2021-04-05] MEDS: Acetaminophen 325 MG TABLET PO PRN (04:35)
[2021-04-05] MEDS: Amiodarone Premix 360 MG/200 ML BAG IVC SCH (06:00)
[2021-04-05] MEDS: Metoprolol XL (24 HR) Succ 50 MG TAB.ER.24H PO SCH (07:35)
[2021-04-05] MEDS: Spironolactone 12.5 MG TABLET PO SCH (07:35)
[2021-04-05] MEDS: Furosemide 20 MG TABLET PO SCH (07:35)
[2021-04-05] MEDS: Loratadine 10 MG TABLET PO SCH (07:35)
[2021-04-05] MEDS: Aspirin Enteric Coated 81 MG Tablet PO SCH (07:35)
[2021-04-05] MEDS: *HR* Amiodarone 200 MG TABLET PO SCH (07:35)
[2021-04-05] MEDS: Fluticasone Propionate Nasal 50 MCG/SPRAY BOTTLE NS SCH (07:36)
[2021-04-05 07:39] VITALS: BP 111/66; PULSE 58; TEMP 97.9; O2SAT 93
[2021-04-05] MEDS ORDERED: Ringers Solution, Lactated 1,000 ML ONE (07:51)
== END 2021-04-05 10:50 | disposition home or self-care (01) ==
LOC: 2NNU 21:29 → EMEROOARM 21:29 → SUATTDRO 04-04 00:29 → 2NNU 04-04 01:37
PROVIDERS: ADMIT Internal Medicine; ATTEND Internal Medicine